=== PATIENT | female | born 1940 | race Caucasian/White ===

== ENCOUNTER 2022-03-28 10:41 | Observation (INO) | payer MEDICARE ==
[2022-03-28] MEDS ORDERED: VANCOMYCIN IV PER PHARMACY 1 EACH MISC MISCELLANE PRN (11:31)
[2022-03-28] MEDS ORDERED: VANCOMYCIN 1,500 MG in SODIUM CHLORIDE 0.9% 500 ML 500 ML IVPB STA (11:39)
[2022-03-28 12:22] LABS: Basophils % (A) 1 %; Eosinophils # (A) 0.2 k/uL (0-0.7); Eosinophils % (A) 4 %; HCT 36.4 % (34.0-46.0); HGB 11.7 gm/dL (11.4-16.0); Hypochromasia Moderate; Lymphocytes # (A) 1.1 k/uL (1.0-4.8); Lymphocytes % (A) 24 %; MCH 31.7 pg (25.0-35.0); MCHC 32.2 g/dL (31.0-37.0); MCV 98.3 fL (80.0-100.0); Mean Platelet Volume 8.7; Monocytes # (A) 0.3 k/uL (0-1.0); Monocytes % (A) 7 %; Neutrophils # (A) 2.7 k/uL (1.3-7.7); Neutrophils % (A) 61 %; Platelet Count 181 k/uL (150-450); RBC 3.71 m/uL (3.80-5.40); RDW 13.9 % (11.5-15.5); WBC 4.4 k/uL (3.8-10.6)
--- NOTE | 2022-03-28 12:26 | ED ---
Lower Extremity Injury HPI - General Chief Complaint: Extremity Injury, Lower Stated Complaint: cellulitis - both legs Time Seen by Provider: 03/28/22 10:53 Source: patient, RN notes reviewed Mode of arrival: wheelchair Limitations: no limitations - History of Present Illness Initial Comments: 81-year-old female sent emergency Department chief complaint of bilateral leg cellulitis. She's been been managed at home on clindamycin and Keflex with no acute changes patient has been followed by home health care nursing symptoms are progressive worsening, worsening drainage patient sent in for admission per recommendations. Patient reports mild discomforts no reported fever. - Related Data Home Medications Medication Instructions Recorded Confirmed Metoprolol Tartrate [Lopressor] 25 mg PO BID 04/28/17 04/28/17 Previous Rx's Medication Instructions Recorded Cephalexin [Keflex] 500 mg PO Q8HR #21 cap 04/30/17 Allergies Allergy/AdvReac Type Severity Reaction Status Date / Time No Known Allergies Allergy Verified 03/28/22 10:53 Review of Systems ROS Statement: Those systems with pertinent positive or pertinent negative responses have been documented in the HPI. ROS Other: All systems not noted in ROS Statement are negative. Past Medical History Past Medical History: GERD/Reflux Additional Past Medical History / Comment(s): Recent tachycardia, recent UTI, sinus problems, starting of bilateral cataracts, bronchitis, History of Any Multi-Drug Resistant Organisms: None Reported Past Surgical History: Hysterectomy Past Anesthesia/Blood Transfusion Reactions: No Reported Reaction Past Psychological History: No Psychological Hx Reported Smoking Status: Never smoker Past Alcohol Use History: None Reported Past Drug Use History: None Reported - Past Family History Father Family Medical History: CVA/TIA Additional Family Medical History / Comment(s): Father of a CVA at the age of 62 yrs. He was an alcoholic. Mother Family Medical History: No Reported History Additional Family Medical History / Comment(s): Mother was healthy and lived to be 84 yrs. General Exam Limitations: no limitations General appearance: alert, in no apparent distress Head exam: Present: atraumatic, normocephalic, normal inspection Eye exam: Present: normal appearance, PERRL, EOMI. Absent: scleral icterus, conjunctival injection, periorbital swelling ENT exam: Present: normal exam, mucous membranes moist Neck exam: Present: normal inspection, full ROM. Absent: tenderness, meningismus, lymphadenopathy Respiratory exam: Present: normal lung sounds bilaterally. Absent: respiratory distress, wheezes, rales, rhonchi, stridor Cardiovascular Exam: Present: regular rate, normal rhythm, normal heart sounds. Absent: systolic murmur, diastolic murmur, rubs, gallop, clicks Extremities exam: Present: other (Bilateral lower extremities mid tib-fib region erythematous changes, warmth with palpation, there is serosanguineous drainage noted) Course Vital Signs 03/28/22 10:49 Temperature 98.3 F Pulse Rate 81 Respiratory 16 Rate Blood Pressure 161/73 O2 Sat by Pulse 99 Oximetry Medical Decision Making - Medical Decision Making Patient has been on multiple antibiotics of worsening symptoms. Patient was started on IV antibiotics, pending ID consult possible PICC line in discharge on antibiotics. - Lab Data Result diagrams: 03/28/22 11:55 Lab Results 03/28/22 03/28/22 Range/Units 11:55 11:55 WBC 4.4 (3.8-10.6) k/uL RBC 3.71 L (3.80-5.40) m/uL Hgb 11.7 (11.4-16.0) gm/dL Hct 36.4 (34.0-46.0) % MCV 98.3 (80.0-100.0) fL MCH 31.7 (25.0-35.0) pg MCHC 32.2 (31.0-37.0) g/dL RDW 13.9 (11.5-15.5) % Plt Count 181 (150-450) k/uL MPV 8.7 Neutrophils % 61 % Lymphocytes % 24 % Monocytes % 7 % Eosinophils % 4 % Basophils % 1 % Neutrophils # 2.7 (1.3-7.7) k/uL Lymphocytes # 1.1 (1.0-4.8) k/uL Monocytes # 0.3 (0-1.0) k/uL Eosinophils # 0.2 (0-0.7) k/uL Basophils # 0.0 (0-0.2) k/uL Hypochromasia Moderate Plasma Lactic Acid Gonzalez 1.0 (0.7-2.0) mmol/L Disposition Clinical Impression: Failure of outpatient treatment, Lower extremity cellulitis Disposition: ADMITTED IP TO THIS [facility] Condition: Fair Referrals: Emanuel Velásquez MD [Primary Care Provider] - 1-2 days
[2022-03-28 12:42] LABS: ALT 27 U/L (4-34); AST 49 U/L (14-36); African American GFR (CKD) >90 (>60 ml/min/1.73 sqM); Alkaline Phosphatase 62 U/L (38-126); Anion Gap 9 mmol/L; Blood Urea Nitrogen 17 mg/dL (7-17); Calcium 8.2 mg/dL (8.4-10.2); Carbon Dioxide 23 mmol/L (22-30); Chloride 106 mmol/L (98-107); Glucose 93 mg/dL (74-99); Non-African American GFR(CKD) 84 (>60 ml/min/1.73 sqM); Sodium 138 mmol/L (137-145); Total Bilirubin 0.9 mg/dL (0.2-1.3); Total Protein 7.3 g/dL (6.3-8.2)
[2022-03-28 13:14] LABS: Potassium 5.3 mmol/L (3.5-5.1)
[2022-03-28] MEDS ORDERED: NALOXONE 0.4 MG/ML 1 ML VIAL IV PRN (13:34)
[2022-03-28] MEDS ORDERED: ONDANSETRON 4 MG/2 ML VIAL IVP PRN (13:34)
[2022-03-28] MEDS ORDERED: LORazepam 0.5 MG TAB PO PRN (14:30)
[2022-03-28] MEDS ORDERED: CALCIUM CARBONATE 500 MG CHEWABLE PO PRN (14:30)
[2022-03-28] MEDS ORDERED: LACTULOSE 20 GM/30 ML CUP PO PRN (14:30)
--- NOTE | 2022-03-28 14:37 | P.HPIM ---
History of Present Illness H&P Date: 03/28/22 Chief Complaint: Lower extremity redness This is a pleasant 81-year-old patient follows with Dr. Emanuel Velásquez. Patient for about 2 months has had lower extremity redness/cellulitis has been admitted twice to the [facility]. Redness has become worse. She has been trying on clindamycin and Keflex. Some swelling. Some oozing. Pain discomfort tenderness. No fever no chills. Was sent down here for having failed outpatient treatment. Started on vancomycin in the ER. Appetite fair. Review of systems: GEN.: Tired EYES: None HEENT: None NECK: None RESPIRATORY: None CARDIOVASCULAR: None GASTROINTESTINAL: Heartburn GENITOURINARY: None MUSCULOSKELETAL: Joint pains LYMPHATICS: None HEMATOLOGICAL: None PSYCHIATRY: None NEUROLOGICAL: Does use a cane, pain discomfort lower extremity Past mental history to include: GERD, UTI, bilateral cataract Social history: . No smoking or alcohol. Does use a cane. Physical examination: VITAL SIGNS: 98.3, 81, 16, 1 61 x 73, 99% room air GENERAL: BMI 31.3, declining but awake, tired. EYES: Pupils equal. Conjunctiva normal. HEENT: External appearance of nose and ears normal, oral cavity grossly normal. NECK: JVD not raised; masses not palpable. HEART: First and second heart sounds are normal; no edema. LUNGS: Respiratory rate normal; clear to auscultation. ABDOMEN: Soft, nontender, liver spleen not palpable, no masses palpable. PSYCH: Alert and oriented x3; mood and affect normal. MUSCULOSKELETAL:No Clubbing/cyanosis;muscles-grossly intact. Evidence of OA in many joints DERMATOLOGICAL: Area off redness extending from a few centimeters below the knee to just above the ankle. Glossy surface. Slight increase in local temperature. Some tenderness. Bilaterally. NEUROLOGICAL: Cranial nerves grossly intact; no facial asymmetry, power and sensation grossly intact. LYMPHATICS: No lymph nodes palpable in the axilla and neck INVESTIGATIONS, reviewed in the clinical context: WBC 4.4 hemoglobin 11.7 platelets 181 potassium 5.3. 17 creatinine 0.66 EKG tracing personally reviewed by me-normal sinus rhythm. 81. Assessment and plan: -Acute bilateral lower extremity cellulitis below the knee up to the ankle. Patient has symptoms for about 2 months. Has failed outpatient treatment clindamycin and Keflex. Patient will need IV antibiotics. Topical Silvadene with Kerlix and Dirk wrap. 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 Fluid restriction vancomycin. Fluid restriction. Silvadene cream with Kerlix and Dirk wrap. Neurontin 300 mg daily at bedtime. Pepcid. Naproxen. Care was discussed with the patient question also. Given the complexity and severity of patient's condition expect the patient to be in the hospital at least for 2 overnights, having failed outpatient treatment Past Medical History Past Medical History: GERD/Reflux Additional Past Medical History / Comment(s): Recent tachycardia, recent UTI, sinus problems, starting of bilateral cataracts, bronchitis, History of Any Multi-Drug Resistant Organisms: None Reported Past Surgical History: Hysterectomy Past Anesthesia/Blood Transfusion Reactions: No Reported Reaction Past Psychological History: No Psychological Hx Reported Smoking Status: Never smoker Past Alcohol Use History: None Reported Past Drug Use History: None Reported - Past Family History Father Family Medical History: CVA/TIA Additional Family Medical History / Comment(s): Father of a CVA at the age of 62 yrs. He was an alcoholic. Mother Family Medical History: No Reported History Additional Family Medical History / Comment(s): Mother was healthy and lived to be 84 yrs. Medications and Allergies Home Medications Medication Instructions Recorded Confirmed Type Furosemide [Lasix] 20 mg PO DAILY 03/28/22 03/28/22 History Potassium Chloride ER [K-Dur 20] 20 meq PO DAILY 03/28/22 03/28/22 History Pregabalin [Lyrica] 50 mg PO HS 03/28/22 03/28/22 History Allergies Allergy/AdvReac Type Severity Reaction Status Date / Time No Known Allergies Allergy Verified 03/28/22 13:16 Physical Exam Vitals: Vital Signs Temp Pulse Resp BP Pulse Ox 03/28/22 13:20 87 23 161/92 98 03/28/22 13:00 73 16 185/92 100 03/28/22 12:55 76 18 185/92 99 03/28/22 10:49 98.3 F 81 16 161/73 99 Intake and Output 03/27/22 03/28/22 03/28/22 22:59 06:59 14:59 Other: Weight 90.718 kg Results CBC & Chem 7: 03/28/22 11:55 03/28/22 11:55 Labs: Abnormal Lab Results - Last 24 Hours (Table) 03/28/22 03/28/22 Range/Units 11:55 11:55 RBC 3.71 L (3.80-5.40) m/uL Potassium 5.3 H (3.5-5.1) mmol/L Calcium 8.2 L (8.4-10.2) mg/dL AST 49 H (14-36) U/L
[2022-03-28] MEDS: ACETAMINOPHEN TAB 325 MG TAB PO PRN (15:02)
[2022-03-28] MEDS: FAMOTIDINE 20 MG TAB PO SCH ×2 (15:03→20:24)
[2022-03-28] MEDS: ENOXAPARIN 40 MG/0.4 ML SYRINGE SQ SCH (15:03)
[2022-03-28] MEDS ORDERED: GABAPENTIN 100 MG CAP PO SCH (16:00)
[2022-03-28] MEDS ORDERED: diphenhydrAMINE 25 MG CAP PO PRN (18:30)
[2022-03-28] MEDS: GABAPENTIN 300 MG CAP PO SCH (20:23)
[2022-03-28] MEDS: ZOLPIDEM 5 MG TAB PO SCH (20:24)
[2022-03-28] MEDS: NAPROXEN 250 MG TAB PO SCH (21:25)
[2022-03-29] MEDS: VANCOMYCIN 1,500 MG in SODIUM CHLORIDE 0.9% 500 ML 500 ML IVPB SCH ×3 (00:33→23:36)
[2022-03-29] MEDS: ENOXAPARIN 40 MG/0.4 ML SYRINGE SQ SCH (09:46)
[2022-03-29] MEDS: FAMOTIDINE 20 MG TAB PO SCH ×2 (09:46→21:22)
[2022-03-29] MEDS: NAPROXEN 250 MG TAB PO SCH ×2 (09:47→21:23)
--- NOTE | 2022-03-29 16:50 | P.PN ---
Progress Note - Text Progress Note Date: 03/29/22 Chief Complaint: Lower extremity redness This is a pleasant 81-year-old patient follows with Dr. Emanuel Velásquez. Patient for about 2 months has had lower extremity redness/cellulitis has been admitted twice to the [facility]. Redness has become worse. She has been trying on clindamycin and Keflex. Some swelling. Some oozing. Pain discomfort tenderness. No fever no chills. Was sent down here for having failed outpatient treatment. Started on vancomycin in the ER. Appetite fair. 03/29/2022: Patient started IV vancomycin. Silvadene cream with Kerlix and Dirk wrap. Started on Neurontin 3 mg daily at bedtime. Patient did request pressing of the right leg to be removed. He slept well last night. Oral intake GERD Active Medications Acetaminophen (Acetaminophen Tab 325 Mg Tab) 650 mg PO Q6HR PRN PRN Reason: Mild Pain or Fever > 100.5 Last Admin: 03/28/22 15:02 Dose: 650 mg Calcium Carbonate/Glycine (Calcium Carbonate 500 Mg Chewable) 1,000 mg PO Q4HR PRN PRN Reason: Dyspepsia Diphenhydramine HCl (Diphenhydramine 25 Mg Cap) 25 mg PO Q6HR PRN PRN Reason: Itching Enoxaparin Sodium (Enoxaparin 40 Mg/0.4 Ml Syringe) 40 mg SQ DAILY [facility] Last Admin: 03/29/22 09:46 Dose: 40 mg Famotidine (Famotidine 20 Mg Tab) 20 mg PO BID [facility] Last Admin: 03/29/22 09:46 Dose: 20 mg Gabapentin (Gabapentin 300 Mg Cap) 300 mg PO HS [facility] Last Admin: 03/28/22 20:23 Dose: 300 mg Vancomycin HCl 1,500 mg/ (Sodium Chloride) 500 mls @ 167 mls/hr IVPB Q12H [facility] Last Admin: 03/29/22 12:42 Dose: 167 mls/hr Lactulose (Lactulose 20 Gm/30 Ml Cup) 20 gm PO DAILY PRN PRN Reason: Constipation Lorazepam (Lorazepam 0.5 Mg Tab) 0.5 mg PO Q6HR PRN PRN Reason: Anxiety Miscellaneous Information (Vancomycin Trough Due 1 Each Misc) 0 each MISCELLANE DIRECTED ONE Stop: 03/30/22 11:01 Naloxone HCl (Naloxone 0.4 Mg/Ml 1 Ml Vial) 0.2 mg IV Q2M PRN PRN Reason: Opioid Reversal Naproxen (Naproxen 250 Mg Tab) 250 mg PO BID [facility] Last Admin: 03/29/22 09:47 Dose: 250 mg Ondansetron HCl (Ondansetron 4 Mg/2 Ml Vial) 4 mg IVP Q8HR PRN PRN Reason: Nausea And Vomiting Silver Sulfadiazine (Silver Sulfadiazine 1% Cream 25 Gm Tube) 1 applic TOPICAL BID [facility]; Protocol Last Admin: 03/29/22 09:48 Dose: 1 applic Zolpidem Tartrate (Zolpidem 5 Mg Tab) 2.5 mg PO HS [facility] Last Admin: 03/28/22 20:24 Dose: 2.5 mg Past mental history to include: GERD, UTI, bilateral cataract Social history: . No smoking or alcohol. Does use a cane. Physical examination: VITAL SIGNS: 98.8, 79, 16, 1 23 x 55, 98% room air GENERAL: sitting on bed, comfortable. EYES: Pupils equal. Conjunctiva normal. HEENT: External appearance of nose and ears normal, oral cavity grossly normal. NECK: JVD not raised; masses not palpable. HEART: First and second heart sounds are normal; no edema. LUNGS: Respiratory rate normal; clear to auscultation. ABDOMEN: Soft, nontender, liver spleen not palpable, no masses palpable. PSYCH: Alert and oriented x3; mood and affect normal. MUSCULOSKELETAL:No Clubbing/cyanosis;muscles-grossly intact. Evidence of OA in many joints DERMATOLOGICAL: Area off redness extending from a few centimeters below the knee to just above the ankle. Glossy surface. Slight increase in local temperature. Some tenderness. Bilaterally. INVESTIGATIONS, reviewed in the clinical context: 03/29/2022: CRP 5.9 procalcitonin 4.16 WBC 4.4 hemoglobin 11.7 platelets 181 potassium 5.3. 17 creatinine 0.66 EKG tracing personally reviewed by me-normal sinus rhythm. 81. Assessment and plan: -Acute bilateral lower extremity cellulitis below the knee up to the ankle. Patient has symptoms for about 2 months. Has failed outpatient treatment clindamycin and Keflex. Patient will need IV antibiotics. Topical Silvadene with Kerlix and Dirk wrap.: Slow to respond. Elevated CRP and procalcitonin. IV vancomycin. Follow with ID. 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 Fluid restriction vancomycin. Fluid restriction. Silvadene cream with Kerlix and Dirk wrap. Neurontin 300 mg daily at bedtime. Pepcid. Naproxen. Discussed with patient. Follow with ID
[2022-03-29] MEDS: ACETAMINOPHEN TAB 325 MG TAB PO PRN (19:45)
[2022-03-29] MEDS: GABAPENTIN 300 MG CAP PO SCH (21:22)
[2022-03-29] MEDS: ZOLPIDEM 5 MG TAB PO SCH (21:23)
[2022-03-29] MEDS ORDERED: SILVER sulfADIAZINE Cream 400 GM 1 APPLIC APPLIC TOPICAL SCH (21:30)
[2022-03-29] MEDS ORDERED: NYSTAT-TRIAMCIN 100,000-0.1 UNIT/GM-% CREAM 30 GM TUBE TOPICAL SCH (22:00)
[2022-03-29] MEDS: TRIAMCINOLONE 0.1% CREAM 80 GM TUBE TOPICAL SCH (22:48)
[2022-03-29] MEDS: NYSTATIN 100,000UNIT/GM CREAM 30 GM TUBE TOPICAL SCH (22:48)
--- NOTE | 2022-03-30 06:03 | P.CONS ---
History of Present Illness - Reason for Consult Consult date: 03/29/22 - History of Present Illness Patient is a 81-year-old female presenting to the ER yesterday afternoon for evaluation of bilateral leg cellulitis apparently the patient has been evaluated in the outpatient setting in [place] and has been treated with clindamycin and Keflex however the patient mention he did not have significant improvement. Been complaining of significant swelling redness to bilateral lower extremity with a burning pain intensity is almost 6-7 out of 10 no radiation patient currently do not have any open wound or any drainage patient on presentation to the hospital was afebrile did have a low-grade fever of 99.4 F this morning patient did have a normal white count kidney function has been normal did have elevated CRP and a procalcitonin blood cultures obtained which are currently pending patient was started on vancomycin along with Silvadene to the leg infectious disease was consulted for further management Past Medical History Past Medical History: GERD/Reflux Additional Past Medical History / Comment(s): Tachycardia, UTI 01/2022, sinus problems, starting of bilateral cataracts, bronchitis, cellulitis to bilat. legs-first time was 2016-then it came back December 2021 and hasn't gone away since History of Any Multi-Drug Resistant Organisms: None Reported Past Surgical History: Hysterectomy Past Anesthesia/Blood Transfusion Reactions: No Reported Reaction Smoking Status: Never smoker - Past Family History Father Family Medical History: CVA/TIA Additional Family Medical History / Comment(s): Father of a CVA at the age of 62 yrs. He was an alcoholic. Mother Family Medical History: No Reported History Additional Family Medical History / Comment(s): Mother was healthy and lived to be 84 yrs. Medications and Allergies Home Medications Medication Instructions Recorded Confirmed Type Furosemide [Lasix] 20 mg PO DAILY 03/28/22 03/28/22 History Potassium Chloride ER [K-Dur 20] 20 meq PO DAILY 03/28/22 03/28/22 History Pregabalin [Lyrica] 50 mg PO HS 03/28/22 03/28/22 History Allergies Allergy/AdvReac Type Severity Reaction Status Date / Time No Known Allergies Allergy Verified 03/28/22 13:16 Physical Exam Vitals: Vital Signs Temp Pulse Pulse Resp BP BP Pulse Ox 03/29/22 06:21 87 107/66 03/29/22 05:00 99.4 F 84 16 92/49 97 03/28/22 17:36 98.5 F 96 16 122/53 99 03/28/22 15:30 87 15 146/80 100 03/28/22 14:30 93 17 158/63 98 03/28/22 13:30 85 19 159/73 98 03/28/22 13:20 87 23 161/92 98 03/28/22 13:00 73 16 185/92 100 03/28/22 12:55 76 18 185/92 99 Intake and Output 03/28/22 03/29/22 03/29/22 22:59 06:59 14:59 Intake Total 480 700 Balance 480 700 Intake: Intake, IV Titration 500 Amount Vancomycin 1,500 mg In 500 Sodium Chloride 0.9% 500 ml 500 ml @ 167 mls/hr IVPB Q12H [facility] Rx#: [id number] Oral 240 200 Other 240 Other: # Voids 1 2 Weight 90.718 kg Results CBC & Chem 7: 03/28/22 11:55 03/28/22 11:55 Labs: Abnormal Lab Results - Last 24 Hours (Table) 03/28/22 03/28/22 03/29/22 Range/Units 11:55 11:55 05:57 RBC 3.71 L (3.80-5.40) m/uL Potassium 5.3 H (3.5-5.1) mmol/L Calcium 8.2 L (8.4-10.2) mg/dL AST 49 H (14-36) U/L C-Reactive Protein 5.9 H (<1.0) mg/dL Assessment and Plan Plan: 1patient with bilateral lower extremity cellulitis failing outpatient oral Keflex and clindamycin therapy more likely from gram-positive skin esteban with question of possible MRSA seem to have shown some clinical response to the vancomycin started by the ER physician to continue while watching her kidney function closely. 2we will discontinue Silvadene and apply Mycolog cream to the lower extremity erythematous patches twice a day. 3if the patient continues to improve hopefully to transition to oral antibiotics on discharge. We will follow on clinical condition and cultures to further adjust medication if needed Thank you for this consultation will follow this patient along with you Time with Patient: Greater than 30
[2022-03-30] MEDS: ENOXAPARIN 40 MG/0.4 ML SYRINGE SQ SCH (07:54)
[2022-03-30] MEDS: FAMOTIDINE 20 MG TAB PO SCH ×2 (10:03→20:30)
[2022-03-30] MEDS: NAPROXEN 250 MG TAB PO SCH ×2 (10:04→20:31)
[2022-03-30] MEDS: NYSTATIN 100,000UNIT/GM CREAM 30 GM TUBE TOPICAL SCH ×2 (10:06→20:41)
[2022-03-30] MEDS: TRIAMCINOLONE 0.1% CREAM 80 GM TUBE TOPICAL SCH ×2 (10:06→20:41)
[2022-03-30] MEDS ORDERED: VANCOMYCIN TROUGH DUE 1 EACH MISC MISCELLANE ONE (11:00)
[2022-03-30 12:31] LABS: African American GFR (CKD) 83 (>60 ml/min/1.73 sqM); Anion Gap 9 mmol/L; Blood Urea Nitrogen 17 mg/dL (7-17); Calcium 7.6 mg/dL (8.4-10.2); Carbon Dioxide 22 mmol/L (22-30); Chloride 107 mmol/L (98-107); Glucose 85 mg/dL (74-99); Non-African American GFR(CKD) 72 (>60 ml/min/1.73 sqM); Potassium 4.2 mmol/L (3.5-5.1); Sodium 138 mmol/L (137-145)
[2022-03-30] MEDS: VANCOMYCIN 1,500 MG in SODIUM CHLORIDE 0.9% 500 ML 500 ML IVPB SCH ×2 (12:42→23:05)
--- NOTE | 2022-03-30 17:24 | P.PN ---
Progress Note - Text Progress Note Date: 03/30/22 Chief Complaint: Lower extremity redness This is a pleasant 81-year-old patient follows with Dr. Emanuel Velásquez. Patient for about 2 months has had lower extremity redness/cellulitis has been admitted twice to the [facility]. Redness has become worse. She has been trying on clindamycin and Keflex. Some swelling. Some oozing. Pain discomfort tenderness. No fever no chills. Was sent down here for having failed outpatient treatment. Started on vancomycin in the ER. Appetite fair. 03/29/2022: Patient started IV vancomycin. Silvadene cream with Kerlix and Dirk wrap. Started on Neurontin 3 mg daily at bedtime. Patient did request pressing of the right leg to be removed. He slept well last night. Oral intake GERD 02/27/2022: Patient on vancomycin. Silvadene changed to Kenalog by ID. Discussed with ID. Patient need at least 1 more day of IV vancomycin. His need to stay in the hospital. Patient's lower extremity pain is better. Active Medications Acetaminophen (Acetaminophen Tab 325 Mg Tab) 650 mg PO Q6HR PRN PRN Reason: Mild Pain or Fever > 100.5 Last Admin: 03/29/22 19:45 Dose: 650 mg Calcium Carbonate/Glycine (Calcium Carbonate 500 Mg Chewable) 1,000 mg PO Q4HR PRN PRN Reason: Dyspepsia Diphenhydramine HCl (Diphenhydramine 25 Mg Cap) 25 mg PO Q6HR PRN PRN Reason: Itching Last Admin: 03/29/22 19:45 Dose: 25 mg Enoxaparin Sodium (Enoxaparin 40 Mg/0.4 Ml Syringe) 40 mg SQ DAILY [facility] Last Admin: 03/30/22 07:54 Dose: 40 mg Famotidine (Famotidine 20 Mg Tab) 20 mg PO BID [facility] Last Admin: 03/30/22 10:03 Dose: 20 mg Gabapentin (Gabapentin 300 Mg Cap) 300 mg PO HS [facility] Last Admin: 03/29/22 21:22 Dose: 300 mg Vancomycin HCl 1,500 mg/ (Sodium Chloride) 500 mls @ 167 mls/hr IVPB Q12H [facility] Last Admin: 03/30/22 12:42 Dose: 167 mls/hr Lactulose (Lactulose 20 Gm/30 Ml Cup) 20 gm PO DAILY PRN PRN Reason: Constipation Lorazepam (Lorazepam 0.5 Mg Tab) 0.5 mg PO Q6HR PRN PRN Reason: Anxiety Naloxone HCl (Naloxone 0.4 Mg/Ml 1 Ml Vial) 0.2 mg IV Q2M PRN PRN Reason: Opioid Reversal Naproxen (Naproxen 250 Mg Tab) 250 mg PO BID [facility] Last Admin: 03/30/22 10:04 Dose: 250 mg Nystatin (Nystatin 100,000unit/Gm Cream 30 Gm Tube) 1 applic TOPICAL BID [facility] Last Admin: 03/30/22 10:06 Dose: 1 applic Ondansetron HCl (Ondansetron 4 Mg/2 Ml Vial) 4 mg IVP Q8HR PRN PRN Reason: Nausea And Vomiting Triamcinolone Acetonide (Triamcinolone 0.1% Cream 80 Gm Tube) 1 applic TOPICAL BID [facility] Last Admin: 03/30/22 10:06 Dose: 1 applic Zolpidem Tartrate (Zolpidem 5 Mg Tab) 2.5 mg PO HS [facility] Last Admin: 03/29/22 21:23 Dose: 2.5 mg Past mental history to include: GERD, UTI, bilateral cataract Social history: . No smoking or alcohol. Does use a cane. Physical examination: VITAL SIGNS: 98.2, 69, 18, 151 with 71, 97% room air GENERAL: sitting on bed, comfortable. EYES: Pupils equal. Conjunctiva normal. HEENT: External appearance of nose and ears normal, oral cavity grossly normal. NECK: JVD not raised; masses not palpable. HEART: First and second heart sounds are normal; no edema. LUNGS: Respiratory rate normal; clear to auscultation. ABDOMEN: Soft, nontender, liver spleen not palpable, no masses palpable. PSYCH: Alert and oriented x3; mood and affect normal. MUSCULOSKELETAL:No Clubbing/cyanosis;muscles-grossly intact. Evidence of OA in many joints DERMATOLOGICAL: Area off redness extending from a few centimeters below the knee to just above the ankle. Glossy surface. Slight increase in local temperature. Some tenderness. Bilaterally. INVESTIGATIONS, reviewed in the clinical context: 03/29/2022: CRP 5.9 procalcitonin 4.16 WBC 4.4 hemoglobin 11.7 platelets 181 potassium 5.3. 17 creatinine 0.66 EKG tracing personally reviewed by me-normal sinus rhythm. 81. Assessment and plan: -Acute bilateral lower extremity cellulitis below the knee up to the ankle. Patient has symptoms for about 2 months. Has failed outpatient treatment clindamycin and Keflex. Elevated CRP and procalcitonin. IV vancomycin. Kenalog. Follow with ID. 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 Fluid restriction vancomycin. Kenalog cream. Other medications to continue. Pain control. Current medications see from utilization Patient will qualify for observation has patient being changed to observation. Per ID patient need at least 1 more day in the hospital with IV vancomycin.
[2022-03-30] MEDS: GABAPENTIN 300 MG CAP PO SCH (20:30)
[2022-03-30] MEDS: ZOLPIDEM 5 MG TAB PO SCH (20:31)
--- NOTE | 2022-03-31 07:43 | P.PN ---
Subjective Progress Note Date: 03/30/22 Principal diagnosis: Bilateral Leg Cellulitis Patient is a 81-year-old female has been dealing with bilateral lower extremity rash and cellulitis failing outpatient oral antibiotic therapy On today's evaluation that is 03/30/2022 the patient denies having any fever or any chills, patient did mention bilateral lower extremity pain and discomfort has slightly decreased intensity denies any chest pain or shortness of breath or cough no abdominal pain no diarrhea Objective - Vital Signs Vital signs: Vital Signs Temp 98.2 F 03/30/22 11:24 Pulse 69 03/30/22 11:24 Resp 18 03/30/22 11:24 BP 151/71 03/30/22 11:24 Pulse Ox 97 03/30/22 11:24 FiO2 Intake & Output 03/29/22 03/30/22 03/30/22 18:59 06:59 18:59 Intake Total 1340 200 Balance 1340 200 Intake: Intake, IV Titration 500 Amount Vancomycin 1,500 mg In 500 Sodium Chloride 0.9% 500 ml 500 ml @ 167 mls/hr IVPB Q12H [facility] Rx#: [id number] Oral 840 200 Other: # Voids 2 - Exam GENERAL DESCRIPTION: Elderly female lying in bed, no distress. No tachypnea or accessory muscle of respiration use. LUNGS: Unlabored breathing. Clear to auscultation anteriorly. No wheeze or crackle. HEART: S1, S2, regular rate and rhythm. No loud murmur ABDOMEN: Soft, no tenderness , guarding or rigidity, no organomegaly EXTREMITIES: Bilateral legs has just been wrapped by the nursing staff mention overall improvement in the redness no drainage on the dressing - Labs CBC & Chem 7: 03/28/22 11:55 03/30/22 11:58 Labs: Abnormal Lab Results - Last 24 Hours (Table) 03/30/22 Range/Units 11:58 Calcium 7.6 L (8.4-10.2) mg/dL Microbiology - Last 24 Hours (Table) 03/28/22 12:07 Blood Culture - Preliminary Blood No Growth after 48 hours 03/28/22 11:55 Blood Culture - Preliminary Blood No Growth after 48 hours Assessment and Plan (1) Lower extremity cellulitis Current Visit: Yes Status: Acute Code(s): L03.119 - CELLULITIS OF UNSPECIFIED PART OF LIMB SNOMED Code(s): 194273739 Plan: 1patient with bilateral lower extremity cellulitis failing outpatient oral Keflex and clindamycin therapy more likely from gram-positive skin esteban with question of possible MRSA seem to have shown some clinical response to the vancomycin started by the ER physician to continue while watching her kidney function closely. 2 Pt to continue with Mycolog cream to the lower extremity erythematous patches twice a day. 3Patient to continue with the vancomycin pharmacy to dose while watching her kidney function closely for another 24 hours if did show overall improvement will transition to oral antibiotic on discharge Time with Patient: Less than 30
[2022-03-31] MEDS: ENOXAPARIN 40 MG/0.4 ML SYRINGE SQ SCH (08:47)
[2022-03-31] MEDS: FAMOTIDINE 20 MG TAB PO SCH (08:47)
[2022-03-31] MEDS: NAPROXEN 250 MG TAB PO SCH (08:47)
[2022-03-31] MEDS: VANCOMYCIN 1,500 MG in SODIUM CHLORIDE 0.9% 500 ML 500 ML IVPB SCH (10:57)
[2022-03-31] MEDS: NYSTATIN 100,000UNIT/GM CREAM 30 GM TUBE TOPICAL SCH (10:58)
[2022-03-31] MEDS: TRIAMCINOLONE 0.1% CREAM 80 GM TUBE TOPICAL SCH (10:58)
[2022-03-31 12:03] VITALS: BP 161/82; PULSE 68; RESP 16; TEMP 97.9
--- NOTE | 2022-03-31 20:30 | P.DS ---
Providers Date of admission: 03/28/22 13:36 Expected date of discharge: 03/31/22 Attending physician: Yunior Emery Consults: 03/28/22 13:34 Consult Physician Urgent Consulting Provider: Linda Dinh Consult Reason/Comments: Cellulitis, failure of treatment Do you want consulting provider notified?: Yes Primary care physician: Emanuel Velásquez [facility] Course: Chief Complaint: Lower extremity redness This is a pleasant 81-year-old patient follows with Dr. Emanuel Velásquze. Patient for about 2 months has had lower extremity redness/cellulitis has been admitted twice to the [facility]. Redness has become worse. She has been trying on clindamycin and Keflex. Some swelling. Some oozing. Pain discomfort tenderness. No fever no chills. Was sent down here for having failed outpatient treatment. Started on vancomycin in the ER. Appetite fair. 03/29/2022: Patient started IV vancomycin. Silvadene cream with Kerlix and Dirk wrap. Started on Neurontin 3 mg daily at bedtime. Patient did request pressing of the right leg to be removed. He slept well last night. Oral intake GERD 03/30/2022: Patient on vancomycin. Silvadene changed to Kenalog by ID. Discussed with ID. Patient need at least 1 more day of IV vancomycin. His need to stay in the hospital. Patient's lower extremity pain is better. 03/31/2022: Patient cleared by ID. Doxycycline 100 mg twice a day for 7 days. Topical Kenalog cream. Fluid restriction to continue. Pain well controlled with current dose of Neurontin. Discussed with patient. Questions answered. Patient to follow-up with ID outpatient. Discussion and discharge planning more than 35 minutes Past mental history to include: GERD, UTI, bilateral cataract Social history: . No smoking or alcohol. Does use a cane. Physical examination: VITAL SIGNS: 97.9, 68, 16, 1 61 x 82, 100% room air GENERAL: sitting on bed, comfortable. EYES: Pupils equal. Conjunctiva normal. HEENT: External appearance of nose and ears normal, oral cavity grossly normal. NECK: JVD not raised; masses not palpable. HEART: First and second heart sounds are normal; no edema. LUNGS: Respiratory rate normal; clear to auscultation. ABDOMEN: Soft, nontender, liver spleen not palpable, no masses palpable. PSYCH: Alert and oriented x3; mood and affect normal. MUSCULOSKELETAL:No Clubbing/cyanosis;muscles-grossly intact. Evidence of OA in many joints DERMATOLOGICAL: Much improved-redness extending from a few centimeters below the knee to just above the ankle. Glossy surface. Slight increase in local temperature. Bilaterally. INVESTIGATIONS, reviewed in the clinical context: 03/30/2022: Potassium 4.2 creatinine 0.79 03/29/2022: CRP 5.9 procalcitonin 4.16 WBC 4.4 hemoglobin 11.7 platelets 181 potassium 5.3. 17 creatinine 0.66 EKG tracing personally reviewed by me-normal sinus rhythm. 81. Assessment and plan: -Acute bilateral lower extremity cellulitis below the knee up to the ankle. Patient has symptoms for about 2 months. Has failed outpatient treatment clindamycin and Keflex. Elevated CRP and procalcitonin. IV vancomycin. Kenalog. Discharged home on oral antibiotics per ID. 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 Fluid restriction Disposition: Home Patient Condition at Discharge: Fair Plan - Discharge Summary Discharge Rx Participant: No New Discharge Prescriptions: New Famotidine [Pepcid] 20 mg PO BID #60 tab Acetaminophen Tab [Tylenol] 650 mg PO Q6HR PRN tab PRN Reason: Mild Pain Or Fever > 100.5 Nystatin 100,000Unit/gm Cream [Mycostatin Cream] 1 applic TOPICAL BID #1 each Doxycycline Hyclate 100 mg PO BID 7 Days #14 tab Triamcinolone 0.1% Cream [Kenalog 0.1% Cream] 1 applic TOPICAL BID #1 each Naproxen [Naprosyn] 250 mg PO BID #10 tab Gabapentin [Neurontin] 300 mg PO HS #30 cap Discontinued Potassium Chloride ER [K-Dur 20] 20 meq PO DAILY Pregabalin [Lyrica] 50 mg PO HS Furosemide [Lasix] 20 mg PO DAILY Discharge Medication List Acetaminophen Tab [Tylenol] 650 mg PO Q6HR PRN tab 03/31/22 [Rx] Doxycycline Hyclate 100 mg PO BID 7 Days #14 tab 03/31/22 [Rx] Famotidine [Pepcid] 20 mg PO BID #60 tab 03/31/22 [Rx] Gabapentin [Neurontin] 300 mg PO HS #30 cap 03/31/22 [Rx] Naproxen [Naprosyn] 250 mg PO BID #10 tab 03/31/22 [Rx] Nystatin 100,000Unit/gm Cream [Mycostatin Cream] 1 applic TOPICAL BID #1 each 03/31/22 [Rx] Triamcinolone 0.1% Cream [Kenalog 0.1% Cream] 1 applic TOPICAL BID #1 each 03/31/22 [Rx] Follow up Appointment(s)/Referral(s): Emanuel Velásquez MD [Primary Care Provider] - 1-2 days (Please call and schedule this appointment was not able to reach office.) [facility], [REFERRING] - 1 Week (AGENCY WILL CONTACT YOU.) Linda Dinh MD [STAFF PHYSICIAN] - 04/12/22 1:15 pm Patient Instructions/Handouts: Famotidine (By mouth), Naproxen (By mouth), Nystatin (On the skin), Triamcinolone (On the skin), Gabapentin (By mouth), Cellulitis (GEN), Fluid Restriction (DC) Activity/Diet/Wound Care/Special Instructions: fluid restrict 1800 cc/day antibiotics and wound care per dr dinh Discharge Disposition: HOME SELF-CARE
== END 2022-03-31 15:29 | disposition home or self-care (01) ==
LOC: EC 10:41 → INTOOBSV 13:36 → 4SSUR 13:36 → 5NMEDONC 13:41
PROVIDERS: ADMIT Hospitalist; ATTEND Hospitalist
DX: L03.115 Cellulitis of right lower limb (principal); L03.116 Cellulitis of left lower limb; K21.9 Gastro-esophageal reflux disease without esophagitis; H26.9 Unspecified cataract; G62.9 Polyneuropathy, unspecified; F51.04 Psychophysiologic insomnia; M19.91 Primary osteoarthritis, unspecified site; Z79.899 Other long term (current) drug therapy; Z82.3 Family history of stroke; Z90.710 Acquired absence of both cervix and uterus; Z81.1 Family history of alcohol abuse and dependence; Z63.72 Alcoholism and drug addiction in family
CPT/HCPCS: 96365 ×2; 96366 ×4; 96372 ×4; 99284; 36415; 93005; 80053; 80048; 85652; 83605; 85025; 80202; 86140; 87040; 84145; G0378 ×4; J3370 ×4; J1650 ×4

== ENCOUNTER 2024-06-19 13:21 | Emergency (ER) | payer MEDICARE ==
[2024-06-19 13:58] VITALS: BP 145/69; PULSE 90; RESP 16; TEMP 98.6
--- NOTE | 2024-06-19 14:18 | ED ---
Extremity Problem HPI - General Chief complaint: Extremity Problem,Nontraumatic Stated complaint: Poss infection kari legs Time Seen by Provider: 06/19/24 13:35 Source: patient, RN notes reviewed Mode of arrival: ambulatory Limitations: no limitations - History of Present Illness Initial comments: This is an 83-year-old female presenting with bilateral lower extremity skin infection x 2 weeks. Patient states she has been receiving treatment from a home health nurse for infection with silver sulfadiazine patches with minimal relief. Patient endorses some fluid from lower legs. Denies recent trauma, laceration or known cause for infection. Endorses history of chronic BLE edema without known cause. Denies fever, chills, chest pain, dyspnea. - Related Data Previous Rx's Medication Instructions Recorded Acetaminophen Tab [Tylenol] 650 mg PO Q6HR PRN tab 03/31/22 Doxycycline Hyclate 100 mg PO BID 7 Days #14 tab 03/31/22 Famotidine [Pepcid] 20 mg PO BID #60 tab 03/31/22 Gabapentin [Neurontin] 300 mg PO HS #30 cap 03/31/22 Naproxen [Naprosyn] 250 mg PO BID #10 tab 03/31/22 Nystatin 100,000Unit/gm Cream 1 applic TOPICAL BID #1 each 03/31/22 [Mycostatin Cream] Triamcinolone 0.1% Cream [Kenalog 1 applic TOPICAL BID #1 each 03/31/22 0.1% Cream] Cephalexin [Keflex] 500 mg PO Q6HR 10 Days #40 cap 06/19/24 Doxycycline [Vibramycin] 100 mg PO BID #20 capsule 06/19/24 Mupirocin 2% Oint [Bactroban 2% 1 applic TOPICAL TID #30 gm 06/19/24 Oint] Allergies Allergy/AdvReac Type Severity Reaction Status Date / Time sulfamethoxazole AdvReac Rash/Hives Verified 06/19/24 13:58 [From Bactrim] trimethoprim [From Bactrim] AdvReac Rash/Hives Verified 06/19/24 13:58 Review of Systems ROS Statement: Those systems with pertinent positive or pertinent negative responses have been documented in the HPI. ROS Other: All systems not noted in ROS Statement are negative. Past Medical History Past Medical History: GERD/Reflux Additional Past Medical History / Comment(s): Tachycardia, UTI 01/2022, sinus problems, starting of bilateral cataracts, bronchitis, cellulitis to bilat. legs-first time was 2016-then it came back December 2021 and hasn't gone away since History of Any Multi-Drug Resistant Organisms: None Reported Past Surgical History: Hysterectomy Past Anesthesia/Blood Transfusion Reactions: No Reported Reaction Past Psychological History: No Psychological Hx Reported Smoking Status: Never smoker - Past Family History Father Family Medical History: CVA/TIA Additional Family Medical History / Comment(s): Father of a CVA at the age of 62 yrs. He was an alcoholic. Mother Family Medical History: No Reported History Additional Family Medical History / Comment(s): Mother was healthy and lived to be 84 yrs. General Exam Limitations: no limitations General appearance: alert, in no apparent distress Head exam: Present: atraumatic, normocephalic, normal inspection Eye exam: Present: normal appearance, PERRL, EOMI. Absent: scleral icterus, conjunctival injection, periorbital swelling ENT exam: Present: normal exam, mucous membranes moist Neck exam: Present: normal inspection. Absent: tenderness, meningismus, lymphadenopathy Respiratory exam: Present: normal lung sounds bilaterally. Absent: respiratory distress, wheezes, rales, rhonchi, stridor Cardiovascular Exam: Present: regular rate, normal rhythm, normal heart sounds. Absent: systolic murmur, diastolic murmur, rubs, gallop, clicks GI/Abdominal exam: Present: soft, normal bowel sounds. Absent: distended, tenderness, guarding, rebound, rigid Extremities exam: Present: full ROM, normal capillary refill, pedal edema (Positive BLE pitting edema with erythema, warmth and tenderness). Absent: tenderness, joint swelling, calf tenderness Back exam: Present: normal inspection Neurological exam: Present: alert, oriented X3, CN II-XII intact Psychiatric exam: Present: normal affect, normal mood Skin exam: Present: warm, dry, intact, normal color. Absent: rash Course Vital Signs 06/19/24 13:55 Temperature 98.6 F Pulse Rate 90 Respiratory 16 Rate Blood Pressure 145/69 O2 Sat by Pulse 99 Oximetry Medical Decision Making - Medical Decision Making Was pt. sent in by a medical professional or institution (, PA, WELL HEAD PU[employer]ER, urgent care, hospital, or alf...) When possible be specific @ -No Did you speak to anyone other than the patient for history (EMS, parent, family, police, friend...)? What history was obtained from this source @ -No Did you review nursing and triage notes (agree or disagree)? Why? @ -I reviewed and agree with nursing and triage notes Were old charts reviewed (outside hosp., previous admission, EMS record, old EKG, old radiological studies, urgent care reports/EKG's, alf records)? Report findings @ -No old charts were reviewed Differential Diagnosis (chest pain, altered mental status, abdominal pain women, abdominal pain men, vaginal bleeding, weakness, fever, dyspnea, syncope, headache, dizziness, GI bleed, back pain, seizure, CVA, palpatations, mental health, musculoskeletal)? @ -Cellulitis, abscess, heart failure, lymphedema, DVT, this is not an exhaustive list EKG interpreted by me (3pts min.). @ -Not done X-rays interpreted by me (1pt min.). @ -None done CT interpreted by me (1pt min.). @ -None done U/S interpreted by me (1pt. min.). @ -None done What testing was considered but not performed or refused? (CT, X-rays, U/S, labs)? Why? @ -None What meds were considered but not given or refused? Why? @ -None Did you discuss the management of the patient with other professionals (professionals i.e. , PA, WELL HEAD PU[employer]ER, lab, RT, psych nurse, perinatal social worker, etcher apprentice, teacher, home school liaison officer, disability case manager)? Give summary @ -No Was smoking cessation discussed for >3mins.? @ -No Was critical care preformed (if so, how long)? @ -No Were there social determinants of health that impacted care today? How? (Homelessness, low income, unemployed, alcoholism, drug addiction, transportation, low edu. Level, literacy, decrease access to med. care, residential, rehab)? @ -No Was there de-escalation of care discussed even if they declined (Discuss DNR or withdrawal of care, Hospice)? DNR status @ -No What co-morbidities impacted this encounter? (DM, HTN, Smoking, COPD, CAD, Cancer, CVA, ARF, Chemo, Hep., AIDS, mental health diagnosis, sleep apnea, morbid obesity)? @ -None Was patient admitted / discharged? Hospital course, mention meds given and route, prescriptions, significant lab abnormalities, going to OR and other pertinent info. @ -Keflex, doxycycline and mupirocin ointment sent to patient's pharmacy. Discussed patient with Dr. Garcia. Undiagnosed new problem with uncertain prognosis? @ -No Drug Therapy requiring intensive monitoring for toxicity (Heparin, Nitro, Insulin, Cardizem)? @ -No Were any procedures done? @ -No Diagnosis/symptom? @ -BLE cellulitis Acute, or Chronic, or Acute on Chronic? @ -Acute Uncomplicated (without systemic symptoms) or Complicated (systemic symptoms)? @ -Uncomplicated Side effects of treatment? @ -No Exacerbation, Progression, or Severe Exacerbation? @ -No Poses a threat to life or bodily function? How? (Chest pain, [place], [place], pneumonia, PE, COPD, DKA, ARF, appy, cholecystitis, CVA, Diverticulitis, Homicidal, Suicidal, threat to staff... and all critical care pts) @ -No Disposition Clinical Impression: Cellulitis Disposition: HOME SELF-CARE Condition: Good Instructions (If sedation given, give patient instructions): Cellulitis (ED) Prescriptions: Mupirocin 2% Oint [Bactroban 2% Oint] 1 applic TOPICAL TID #30 gm Cephalexin [Keflex] 500 mg PO Q6HR 10 Days #40 cap Doxycycline [Vibramycin] 100 mg PO BID #20 capsule Is patient prescribed a controlled substance at d/c from ED?: No Referrals: Emanuel Velásquez MD [Primary Care Provider] - 1-2 days Time of Disposition: 14:40
== END 2024-06-19 17:03 | disposition home or self-care (01) ==
LOC: EC 13:21
DX: L03.116 Cellulitis of left lower limb (principal); L03.115 Cellulitis of right lower limb; Z88.1 Allergy status to other antibiotic agents; Z88.2 Allergy status to sulfonamides
CPT/HCPCS: 99283